=== PATIENT | female | born 1980 | race Caucasian/White ===

== ENCOUNTER 2017-04-14 04:32 | Emergency (ER) | payer SELFPAY ==
[~2017-04-14] VITALS: Ht 165.1 cm; Wt 63.5 kg
[2017-04-14 04:54] VITALS: BP 111/54
[2017-04-14] MEDS ORDERED: HYDR-971 PO (05:36)
--- NOTE | 2017-04-14 05:36 | PHYS DOC ---
Past Medical History Past Medical History: Other Additional Past Medical Histor: tachycardia Past Surgical History: Appendectomy, Cholecystectomy, Other Additional Past Surgical Histo: laproscopic for endometriosis Alcohol Use: None Drug Use: None Adult General Chief Complaint Chief Complaint: BACK PAIN OR INJURY HPI HPI Patient is a 36 year old female who presents with complaint of low back pain. Patient states that her symptoms started yesterday evening. Patient states that she was moving heavy boxes as part of an estate sale yesterday. Patient states that she started having tightness in her low back. Patient states she has had similar symptoms in the past associated with prior pregnancies. Patient states however she has not been having any difficulty over the past 10 years with back pain as severe as it has become this morning. Patient states she took Tylenol at 1:00 this morning. Patient denies any fall or trauma to her back. Patient states that she is having a significant amount of tightness throughout her back and rates her pain currently is 8 out of 10. Patient denies any radiation of pain into her lower extremities. Patient denies loss of bowel or bladder control , saddle anesthesia, or foot drop. Review of Systems Review of Systems Constitutional: Denies fever or chills [] Eyes: Denies change in visual acuity, redness, or eye pain [] HENT: Denies nasal congestion or sore throat [] Respiratory: Denies cough or shortness of breath [] Cardiovascular: Denies chest pain or edema [] GI: Denies abdominal pain, nausea, vomiting, bloody stools or diarrhea [] : Denies dysuria or hematuria [] Musculoskeletal: Back pain [] Integument: Denies rash or skin lesions [] Neurologic: Denies headache, focal weakness or sensory changes [] Allergies Allergies Allergies Coded Allergies Type Severity Reaction Last Updated Verified NSAIDS (Non-Steroidal Anti-Inflamma Allergy Intermediate 04/14/17 Yes ethinyl estradiol Allergy Intermediate 04/14/17 Yes norgestimate Allergy Intermediate 04/14/17 Yes Physical Exam Physical Exam Constitutional: Alert, afebrile, appears in moderate discomfort [] HENT: Normocephalic, atraumatic, bilateral external ears normal, oropharynx moist, no oral exudates, nose normal. [] Eyes: PERRLA, EOMI, conjunctiva normal, no discharge. [] Neck: Normal range of motion, no tenderness, supple, no stridor. [] Cardiovascular:Heart rate regular rhythm, no murmur [] Lungs & Thorax: Bilateral breath sounds clear to auscultation [] Abdomen: Bowel sounds normal, soft, no tenderness, no masses, no pulsatile masses. [] Skin: Warm, dry, no erythema, no rash. [] Back: No midline tenderness, bilateral mid and lower lumbar paraspinous muscle spasm with tenderness to palpation, no flank ecchymosis. [] Extremities: No tenderness, no cyanosis, no clubbing, ROM intact, no edema. [] Neurologic: Alert and oriented X 3, normal motor function, normal sensory function, no focal deficits noted. [] Current Patient Data Vital Signs Vital Signs Date Time Temp Pulse Resp B/P (MAP) Pulse Ox O2 Delivery O2 Flow Rate FiO2 04/14/17 04:54 97.9 77 18 99 Room Air 97.9 EKG EKG Not performed [] Radiology/Procedures Radiology/Procedures Not performed [] Course & Med Decision Making Course & Med Decision Making Pertinent Labs and Imaging studies reviewed. (See chart for details) Patient's exam consistent with acute lumbar strain. Patient states that she has taken Dexter in the past for symptoms and that seemed to help with her pain at that time. The patient states that she drove herself to the emergency department , thus patient was not administered any narcotic medication in the emergency department. Patient written for Dexter for continued outpatient treatment. Advised return emergency department for any worsening symptoms and recommended follow-up in 3-5 days with primary doctor for reevaluation. Patient voiced understanding and in agreement with treatment plan. Dragon Disclaimer Dragon Disclaimer This electronic medical record was generated, in whole or in part, using a voice recognition dictation system. Departure Departure Impression: Primary Impression: Low back strain Disposition: 01 HOME, SELF-CARE Condition: STABLE Referrals: NO PCP (PCP) Patient Instructions: Back Pain, Adult Additional Instructions: Follow-up to primary doctor in 3-5 days for reevaluation. Return to the emergency department for any worsening symptoms. Do not operate any heavy machinery while taking your pain medication as it may cause sedation and slow your response time. Scripts Hydrocodone/Apap 5-325 (NORCO 5-325 TABLET) 1 Each Tablet 1-2 TAB PO Q4-6HRS Y for PAIN, #20 TAB Prov: CATHY ZAVALA MD 04/14/17 Problem Qualifiers Primary Impression: Low back strain Encounter type: initial encounter Qualified Codes: S39.012A - Strain of muscle, fascia and tendon of lower back, initial encounter CATHY ZAVALA MD Apr 14, 2017 05:36
== END 2017-04-14 05:47 | disposition home or self-care (01) ==
LOC: ER 04:32
DX: S39.012A Strain of muscle, fascia and tendon of lower back, initial encounter (principal); Z90.49 Acquired absence of other specified parts of digestive tract; Z88.6 Allergy status to analgesic agent; Z88.8 Allergy status to other drugs, medicaments and biological substances; X50.9XXA Other and unspecified overexertion or strenuous movements or postures, initial encounter; Y93.89 Activity, other specified; Y99.8 Other external cause status; Y92.89 Other specified places as the place of occurrence of the external cause
CPT/HCPCS: 99283